=== PATIENT | male | born 1965 | race Caucasian/White ===

== ENCOUNTER 2018-06-29 19:09 | Inpatient (IN) | payer MEDICAID ==
[2018-06-29 20:19] LABS: ABNORMAL IP MESSAGE 1; HEMATOCRIT 23.5 % (42.0-52.0); HEMOGLOBIN 7.1 g/dl (14.0-18.0); MEAN CORPUSCULAR HEMOGLOBIN 22.5 pg (29.0-33.0); MEAN CORPUSCULAR HGB CONC 30.2 g/dl (32.0-37.0); MEAN CORPUSCULAR VOLUME 74.4 fl (82.0-101.0); PLATELET COUNT 40 10^3/UL (140-415); POSITIVE DIFF @See below; RED BLOOD COUNT 3.16 10^6/ul (4.70-6.10); RED CELL DISTRIBUTION WIDTH 18.6 % (11.5-14.5)
[2018-06-29 20:19] LABS: WHITE BLOOD COUNT 2.4 10^3/ul (4.8-10.8)
[2018-06-29 20:30] LABS: ADD MAN DIFF? YES; PATH REVIEW? YES
[2018-06-29] MEDS ORDERED: ONDANSETRON 4 MG INJ IV (20:30)
[2018-06-29] MEDS ORDERED: NACL 0.9% 3 ML SYG IV (20:30)
[2018-06-29] MEDS ORDERED: ZOLPIDEM 5 MG TAB PO (20:30)
[2018-06-29] MEDS ORDERED: ACETAMINOPHEN 325 MG TAB PO (20:30)
[2018-06-29] MEDS: SOD CHLORIDE 0.9% 250 ML IV* (20:35)
[2018-06-29 20:38] LABS: INR 1.86; PROTIME 21.5 Sec (11.9-14.9); PT RATIO 1.7
[2018-06-29 20:39] LABS: PARTIAL THROMBOPLASTIN TIME 39.1 Sec (23.0-35.0)
[2018-06-29 20:42] LABS: ALANINE AMINOTRANSFERASE 62 IU/L (13-69); ALBUMIN/GLOBULIN RATIO 0.95; ALKALINE PHOSPHATASE 74 IU/L (42-121); ANION GAP 11 (5-13); ASPARTATE AMINO TRANSFERASE 50 IU/L (15-46); BLOOD UREA NITROGEN 18 mg/dl (7-20); CALCIUM 8.4 mg/dl (8.4-10.2); CARBON DIOXIDE 19 mmol/L (21-31); CHLORIDE 103 mmol/L (97-110); CREATININE 1.25 mg/dl (0.61-1.24); Estimated GFR 60 mL/min (>60); GLUCOSE 116 mg/dl (70-220); POTASSIUM 4.7 mmol/L (3.5-5.1); SODIUM 133 mmol/L (135-144); TOTAL PROTEIN 8.2 g/dl (6.1-8.1)
[2018-06-29 20:55] LABS: ANISOCYTOSIS 1+ (0-0); EOSINOPHILS % (M) 4 % (0-7); GIANT THROMBO% (M) 1 % (0-0); HYPOCHROMASIA 2+ (0-0); LYMPHOCYTES #M 0.2 10^3/ul (0.8-2.9); LYMPHOCYTES % (M) 11 % (15-51); MONOCYTE #M 0.1 10^3/ul (0.3-0.9); MONOCYTES % (M) 6 % (0-11); MYELOCYTES % (M) 1 % (0-0); PLATELET ESTIMATE DECREASED; POIKILOCYTOSIS 1+ (0-0); POLYCHROMASIA 2+ (0-0); PROMYELOCYTES % (M) 1 % (0-0); SEGMENTED NEUTROPHILS (M) % 77 % (39-77); SMUDGE%M 1 % (0-0)
[2018-06-29] MEDS ORDERED: DIPHENHYDRAMINE 50 MG INJ IV (23:00)
[2018-06-30] MEDS: SPIRONOLACTONE 50 MG TAB PO (08:33)
[2018-06-30] MEDS: FUROSEMIDE 40 MG TAB PO (08:35)
[2018-06-30 09:02] LABS: WHITE BLOOD COUNT 1.7 10^3/ul (4.8-10.8)
[2018-06-30 09:02] LABS: ABNORMAL IP MESSAGE 1; HEMOGLOBIN 8.1 g/dl (14.0-18.0); MEAN CORPUSCULAR HEMOGLOBIN 23.5 pg (29.0-33.0); MEAN CORPUSCULAR HGB CONC 31.2 g/dl (32.0-37.0); MEAN CORPUSCULAR VOLUME 75.4 fl (82.0-101.0); PLATELET COUNT 37 10^3/UL (140-415); POSITIVE DIFF @See below; RED BLOOD COUNT 3.45 10^6/ul (4.70-6.10); RED CELL DISTRIBUTION WIDTH 18.7 % (11.5-14.5)
[2018-06-30 09:11] LABS: HEMOGLOBIN A1C 5.3 % (0-5.9)
[2018-06-30 09:12] LABS: ADD MAN DIFF? YES
[2018-06-30 09:21] LABS: INR 2.05; PROTIME 23.2 Sec (11.9-14.9); PT RATIO 1.8
[2018-06-30 09:22] LABS: PARTIAL THROMBOPLASTIN TIME 40.3 Sec (23.0-35.0)
[2018-06-30 09:31] LABS: IRON 59 ug/dl (35-150)
[2018-06-30 09:32] LABS: PHOSPHORUS 3.8 mg/dl (2.5-4.9)
[2018-06-30 09:40] LABS: % IRON SATURATION 18 % SAT (22-52); TOTAL IRON BINDING CAPACITY 329 ug/dl (241-421)
[2018-06-30] MEDS: SOD CHLORIDE 0.9% IV (10:51)
[2018-06-30] MEDS: FOLIC ACID IV (10:51)
[2018-06-30] MEDS: MULTIVITAMINS IV (10:51)
[2018-06-30] MEDS: THIAMINE IV (10:51)
[2018-06-30 11:04] LABS: PARATHYROID HORMONE INTACT 62.9 pg/ml (7.5-53.5)
[2018-06-30 12:15] LABS: FERRITIN 7.6 ng/ml (11.1-264.0)
[2018-06-30 15:38] LABS: ADD UMIC NO; UR ASCORBIC ACID NEGATIVE (NEGATIVE); UR BILIRUBIN (Dip) NEGATIVE (NEGATIVE); UR BLOOD (Dip) NEGATIVE (NEGATIVE); UR CLARITY CLEAR (CLEAR); UR COLOR YELLOW (YELLOW); UR GLUCOSE (Dip) NEGATIVE (NEGATIVE); UR KETONES (Dip) NEGATIVE (NEGATIVE); UR LEUKOCYTE ESTERASE (Dip) NEGATIVE Leu/ul (NEGATIVE); UR NITRITE (Dip) NEGATIVE (NEGATIVE); UR SPECIFIC GRAVITY (Dip) 1.009 (1.003-1.030); UR TOTAL PROTEIN (Dip) NEGATIVE (NEGATIVE); UR UROBILINOGEN (Dip) NEGATIVE (NEGATIVE)
[2018-07-01 05:35] LABS: ABNORMAL IP MESSAGE 1; HEMATOCRIT 24.7 % (42.0-52.0); HEMOGLOBIN 7.8 g/dl (14.0-18.0); MEAN CORPUSCULAR HEMOGLOBIN 23.9 pg (29.0-33.0); MEAN CORPUSCULAR HGB CONC 31.6 g/dl (32.0-37.0); MEAN CORPUSCULAR VOLUME 75.5 fl (82.0-101.0); PLATELET COUNT 31 10^3/UL (140-415); POSITIVE DIFF @See below; RED BLOOD COUNT 3.27 10^6/ul (4.70-6.10); RED CELL DISTRIBUTION WIDTH 18.5 % (11.5-14.5)
[2018-07-01 05:35] LABS: WHITE BLOOD COUNT 1.4 10^3/ul (4.8-10.8)
[2018-07-01 05:54] LABS: ADD MAN DIFF? YES
[2018-07-01 06:09] LABS: ANION GAP 7 (5-13); BLOOD UREA NITROGEN 19 mg/dl (7-20); CALCIUM 7.9 mg/dl (8.4-10.2); CARBON DIOXIDE 20 mmol/L (21-31); CHLORIDE 106 mmol/L (97-110); Estimated GFR > 60 mL/min (>60); GLUCOSE 94 mg/dl (70-220); POTASSIUM 4.3 mmol/L (3.5-5.1); SODIUM 133 mmol/L (135-144)
[2018-07-01 07:05] LABS: ANISOCYTOSIS 1+ (0-0); BAND NEUTROPHILS % (M) 1 % (0-4); BASOPHILS % (M) 2 % (0-2); BURR CELLS 1+ (0-0); EOSINOPHILS % (M) 1 % (0-7); GIANT THROMBO% (M) 14 % (0-0); HYPOCHROMASIA 1+ (0-0); LYMPHOCYTES #M 0.2 10^3/ul (0.8-2.9); LYMPHOCYTES % (M) 20 % (15-51); MONOCYTE #M 0.1 10^3/ul (0.3-0.9); MONOCYTES % (M) 10 % (0-11); OVALOCYTES 1+ (0-0); PLATELET ESTIMATE DECREASED; POIKILOCYTOSIS 1+ (0-0); POLYCHROMASIA 2+ (0-0); SEG NEUT #M 0.9 10^3/ul (1.6-7.5); SEGMENTED NEUTROPHILS (M) % 66 % (39-77); SMUDGE%M 8 % (0-0)
[2018-07-01] MEDS: FUROSEMIDE 40 MG TAB PO (08:56)
[2018-07-01] MEDS: SPIRONOLACTONE 50 MG TAB PO (08:57)
[2018-07-01 10:08] LABS: OCCULT BLOOD STOOL NEGATIVE (NEGATIVE)
[2018-07-01 15:51] LABS: IMMEDIATE SPIN CROSSMATCH 1 3
[2018-07-02] MEDS: SPIRONOLACTONE 50 MG TAB PO (08:28)
[2018-07-02] MEDS: FUROSEMIDE 40 MG TAB PO (08:28)
[2018-07-02 10:30] LABS: WHITE BLOOD COUNT 1.5 10^3/ul (4.8-10.8)
[2018-07-02 10:30] LABS: ABNORMAL IP MESSAGE 1; HEMATOCRIT 29.4 % (42.0-52.0); HEMOGLOBIN 9.2 g/dl (14.0-18.0); MEAN CORPUSCULAR HEMOGLOBIN 24.2 pg (29.0-33.0); MEAN CORPUSCULAR HGB CONC 31.3 g/dl (32.0-37.0); MEAN CORPUSCULAR VOLUME 77.4 fl (82.0-101.0); POSITIVE DIFF @See below; RED CELL DISTRIBUTION WIDTH 18.7 % (11.5-14.5)
[2018-07-02 10:34] LABS: ADD MAN DIFF? YES; PLATELET COUNT 29 10^3/UL (140-415)
[2018-07-02 10:42] LABS: ANION GAP 8 (5-13); BLOOD UREA NITROGEN 20 mg/dl (7-20); CALCIUM 8.5 mg/dl (8.4-10.2); CARBON DIOXIDE 21 mmol/L (21-31); CHLORIDE 105 mmol/L (97-110); CREATININE 1.12 mg/dl (0.61-1.24); Estimated GFR > 60 mL/min (>60); GLUCOSE 126 mg/dl (70-220); POTASSIUM 4.4 mmol/L (3.5-5.1); SODIUM 134 mmol/L (135-144)
[2018-07-02 11:09] LABS: ANISOCYTOSIS 1+ (0-0); BAND NEUTROPHILS % (M) 2 % (0-4); BASOPHILS % (M) 2 % (0-2); BURR CELLS 1+ (0-0); EOSINOPHILS % (M) 2 % (0-7); GIANT THROMBO% (M) 1 % (0-0); HYPOCHROMASIA 2+ (0-0); LYMPHOCYTES #M 0.2 10^3/ul (0.8-2.9); LYMPHOCYTES % (M) 15 % (15-51); MICROCYTOSIS 1+ (0-0); MONOCYTE #M 0.1 10^3/ul (0.3-0.9); MONOCYTES % (M) 13 % (0-11); OVALOCYTES 1+ (0-0); PLATELET ESTIMATE SIG DECREASED; POIKILOCYTOSIS 2+ (0-0); POLYCHROMASIA 3+ (0-0); REACTIVE LYMPHOCYTES% (M) 1 % (0-0); SEGMENTED NEUTROPHILS (M) % 65 % (39-77); SMUDGE%M 2 % (0-0)
== END 2018-07-02 16:30 | disposition home or self-care (01) | DRG 433 ==
LOC: E/R 19:09 → MS1 20:25
PROVIDERS: Internal Medicine
PROC: 30233N1 Transfusion of Nonautologous Red Blood Cells into Peripheral Vein, Percutaneous Approach (ICD-10-PCS; principal; 2018-06-29)
DX: K74.69 Other cirrhosis of liver (principal); B19.10 Unspecified viral hepatitis B without hepatic coma; D61.818 Other pancytopenia; R18.8 Other ascites; R16.1 Splenomegaly, not elsewhere classified; K42.9 Umbilical hernia without obstruction or gangrene; K40.20 Bilateral inguinal hernia, without obstruction or gangrene, not specified as recurrent
CPT/HCPCS: 36415; 36430; 80048; 80053; 81003; 82270; 82728; 83036; 83540; 83970; 84100; 84443; 85025; 85610; 85730; 86850; 86900; 86901; 86920; 93005; 99285-25; G0378